=== PATIENT | female | born 1980 | race Caucasian/White ===

== ENCOUNTER → 2019-07-07 | Outpatient (CLI) | payer OTHER ==
--- NOTE | 2019-07-07 13:57 | CT ---
EXAMINATION TYPE: CT abdomen pelvis wo con DATE OF EXAM: 07/07/2019 COMPARISON: None HISTORY: Hydronephrosis CT DLP: 801.10 mGycm Automated exposure control for dose reduction was used. TECHNIQUE: Helical acquisition of images from the lung bases through the pelvis. FINDINGS: Lack of intravenous contrast could compromise sensitivity. Small hiatal hernia suspected. LUNG BASES: No significant abnormality is appreciated. AORTA: No significant abnormality is appreciataed. LIVER/GB: Liver shows low attenuation likely due to hepatic steatosis with focal sparing at the level of the gallbladder, gallbladder is unremarkable PANCREAS: No significant abnormality is seen. SPLEEN: No significant abnormality is seen. ADRENALS: No significant abnormality is seen. KIDNEYS: There is a nonobstructive calculus which is measuring only 2 mm the lower pole left kidney. There is hydronephrosis with left-sided hydroureter present. At the level of the mid to distal left u reter there is a calculus present measuring 9 mm in size. Immediately cephalad there is a smaller bala culus present measuring approximately 5 mm. There may be underlying medullary sponge kidney, right ki dney is otherwise unremarkable. REPRODUCTIVE ORGANS: No significant abnormality is seen. Small amount of free fluid present in the c ul-de-sac. There is likely a tampon in place. URINARY BLADDER: No significant abnormality is seen. BOWEL: No significant abnormality is seen. FREE AIR: No Free Air is visible. ASCITES: None visible. PELVIC ADENOPATHY: None visualized. RETROPERITONEAL ADENOPATHY: No Retroperitoneal Adenopathy visible. OSSEOUS STRUCTURES: No significant abnormality is seen. IMPRESSION: LEFT URETERAL CALCULI, LEFT-SIDED NEPHROLITHIASIS, HYDRONEPHROSIS. 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 NONCONTRAST EXAM. Probable hepatic steatosis.
== END | disposition home or self-care (01) ==
LOC: RADCTMAIN 13:00
PROVIDERS: ATTEND Urology
DX: N13.2 Hydronephrosis with renal and ureteral calculous obstruction (principal)
CPT/HCPCS: 74176

== ENCOUNTER → 2019-09-14 | Outpatient (CLI) | payer OTHER ==
--- NOTE | 2019-09-14 12:54 | US ---
EXAMINATION TYPE: US kidneys/renal and bladder DATE OF EXAM: 09/14/2019 COMPARISON: CT 07/07/2019 CLINICAL HISTORY: R93.4 HX HYDRONEPHROSIS. History of kidney stone and hydronephrosis. Lithotripsy [facility] tober 2018 EXAM MEASUREMENTS: Right Kidney: 10.9 x 4.5 x 4.1 cm Left Kidney: 10.4 x 4.2 x 4.2 cm Right Kidney: No hydronephrosis or masses seen Left Kidney: No hydronephrosis or masses seen Bladder: wnl Bilateral Jets seen: Yes There is no evidence for hydronephrosis at this point in time. No nephrolithiasis is seen. No georgie s are identified. The urinary bladder is anechoic. Bilateral ureteral jets are seen. Incidental noted probable hepatic steatosis. IMPRESSION: No hydronephrosis or nephrolithiasis seen. Incidental note of probable hepatic steatosis. Correlate with liver function tests.
== END | disposition home or self-care (01) ==
LOC: RADUSWWP 11:51
PROVIDERS: ATTEND Urology
DX: Z09 Encounter for follow-up examination after completed treatment for conditions other than malignant neoplasm (principal); Z87.448 Personal history of other diseases of urinary system
CPT/HCPCS: 76770